=== PATIENT | female | born 1975 | race Caucasian/White ===

== ENCOUNTER → 2020-01-19 10:14 | Outpatient (CLI) | payer OTHER, SELFPAY ==
--- NOTE | ~2020-01-19 | US_ITS ---
US thyroid INDICATION: Neck swelling. Palpable lump. TECHNIQUE: Real-time sonographic images of the thyroid gland were obtained. COMPARISON: No prior studies for comparison. FINDINGS: The right thyroid lobe measures 5.3 x 1.8 x 2.1 cm. The left thyroid lobe measures 5.5 x 1 .5 x 1.9 cm. There is normal echotexture and echogenicity throughout the thyroid gland. There are sma ll hypoechoic masses in both thyroid lobes, largest in the right lobe measuring 5 x 4 x 3 mm. Largest in the left lobe measures 7 x 6 x 4 mm. IMPRESSION: 1. Multiple small thyroid masses measuring 7 mm or less, likely benign multinodular goiter. Reviewed, dictated and finalized at location A. E FINISHER IMPRESSION: 1. Multiple small thyroid masses measuring 7 mm or less, likely benign multino dular goiter.
== END ==
PROVIDERS: PCP Physician Assistant; Visit Provider Physician Assistant
DX: E04.2 Nontoxic multinodular goiter (principal)
CPT/HCPCS: 76536